=== PATIENT | male | born 1960 | race Caucasian/White ===

== ENCOUNTER 2020-02-25 11:54 | Emergency (ER) | payer MEDICAID ==
[~2020-02-25] VITALS: Ht 188 cm; Wt 60.8 kg
[~2020-02-25 11:54] MED LIST: HYDR-3965 PO
[2020-02-25 12:02] VITALS: BP 119/83
[2020-02-25] MEDS ORDERED: LIDOcaine 1%/PF 5ML 10 MG/ML VIAL SQ ONE (12:30)
[2020-02-25] MEDS ORDERED: CEPH-572 PO (13:07)
[2020-02-25] MEDS ORDERED: SULF1TAB49 PO (13:07)
== END 2020-02-25 13:18 | disposition home or self-care (01) ==
LOC: ER 11:54
DX: L02.211 Cutaneous abscess of abdominal wall (principal); F17.200 Nicotine dependence, unspecified, uncomplicated; Z79.899 Other long term (current) drug therapy
CPT/HCPCS: 10060; 99283